=== PATIENT | male | born 1985 | race Two or more races ===

== ENCOUNTER → 2021-08-03 | Emergency (ER) | payer MEDICAID ==
[~2021-08-03] VITALS: Ht 180.3 cm; Wt 83.9 kg
[~2021-08-03] MED LIST: CEPH500C2 PO; LIDOCAINE /MPF 1% VIAL 5 ML VIAL ONE; LIDOCAINE 1% INJ 50 ML MDV IJ ONE
[2021-08-03 13:04] VITALS: BP 123/60
--- NOTE | 2021-08-03 13:39 | NUR ---
AT BEDSIDE FOR INCISION AND DRAINAGE.
--- NOTE | 2021-08-03 15:13 | NUR ---
Patient discharged to home in stable condition. Written and verbal after care instructions given. Patient verbalizes understanding of instruction.
== END | disposition home or self-care (01) ==
LOC: ER 12:57
DX: S60.420A Blister (nonthermal) of right index finger, initial encounter (principal); Z88.2 Allergy status to sulfonamides; X58.XXXA Exposure to other specified factors, initial encounter; Y93.E5 Activity, floor mopping and cleaning; Y92.009 Unspecified place in unspecified non-institutional (private) residence as the place of occurrence of the external cause; Y99.8 Other external cause status
CPT/HCPCS: 26010; 99283; A6403; A6407; J3490